=== PATIENT | female | born 1970 | race Native Hawaiian/Other Pacific Islander ===

== ENCOUNTER 2018-01-03 15:25 | Inpatient (IN) | payer MEDICARE, OTHER ==
[2018-01-03 17:00] LABS: BASO # 0.1 10^3/uL (0.0-0.2); BASO % 0.7 % (0.0-1.0); EOS # 0.5 10^3/uL (0.0-0.50); EOS % 6.7 % (0.0-3.0); HEMATOCRIT 33.5 % (36.0-47.0); HEMOGLOBIN 11.1 g/dl (12.0-15.5); IMMATURE GRANULOCYTE % 0.3 % (0-3.0); LYMPH # 1.1 10^3/uL (1.5-4.5); LYMPH % 16.2 % (24.0-44.0); MEAN CORPUSCULAR HEMOGLOBIN 32.8 pg (27.0-33.0); MEAN CORPUSCULAR HGB CONC 33.1 g/dl (32.0-36.5); MEAN CORPUSCULAR VOLUME 99.1 fl (80.0-96.0); MONO # 0.5 10^3/uL (0.0-0.8); MONO % 7.2 % (0.0-5.0); NEUTROPHILS # 4.8 10^3/uL (1.8-7.7); NEUTROPHILS % 68.9 % (36.0-66.0); PLATELET COUNT, AUTOMATED 228 10^3/uL (150-450); RED BLOOD COUNT 3.38 10^6/uL (4.00-5.40); RED CELL DISTRIBUTION WIDTH 13.1 % (11.5-14.5); WHITE BLOOD COUNT 6.9 10^3/uL (4.0-10.0)
[2018-01-03] MEDS: LABETALOL HCL 100 MG/20 ML VIAL IV (17:03)
[2018-01-03 17:14] LABS: INR 0.87; PARTIAL THROMBOPLASTIN TIME 28.1 SECONDS (26.8-37.9); PROTHROMBIN TIME 11.9 SECONDS (12.4-14.5)
[2018-01-03 17:22] LABS: CONTROL LINE HCG INT CTR LINE PRESENT; HCG, SERUM QUALITATIVE NEGATIVE (NEGATIVE)
[2018-01-03 17:37] LABS: ALBUMIN 3.8 GM/DL (3.2-5.2); ALKALINE PHOSPHATASE 89 U/L (45-117); ALT/SGPT 55 U/L (12-78); ANION GAP 7 MEQ/L (8-16); AST/SGOT 47 U/L (7-37); BILIRUBIN,DIRECT 0.2 MG/DL (0.0-0.2); BILIRUBIN,TOTAL 0.5 MG/DL (0.2-1.0); BLOOD UREA NITROGEN 44 MG/DL (7-18); CALCIUM LEVEL 8.9 MG/DL (8.5-10.1); CARBON DIOXIDE LEVEL 34 MEQ/L (21-32); CHLORIDE LEVEL 95 MEQ/L (98-107); CK-MB VALUE MASS 1.2 NG/ML (<3.6); CPK CREATINE PHOSPHOKINASE 78 U/L (26-192); FREE T4 0.92 NG/DL (0.76-1.46); GLOMERULAR FILTRATION RATE 3.3 (>58); GLUCOSE, FASTING 146 MG/DL (70-100); LIPASE 358 U/L (73-393); MB/CK RELATIVE INDEX 1.53 (< OR =4); SODIUM LEVEL 136 MEQ/L (136-145); TOTAL PROTEIN 7.6 GM/DL (6.4-8.2); TROPONIN I 0.22 NG/ML (< 0.10)
[2018-01-03] MEDS: hydrALAZINE INJ 20 MG/ML VIAL IV (18:39)
[2018-01-03] MEDS: ACETAMINOPHEN TAB 650MG DOSE (2X325MG) PO (21:13)
[2018-01-04 00:43] LABS: CK-MB VALUE MASS 1.2 NG/ML (<3.6); CPK CREATINE PHOSPHOKINASE 65 U/L (26-192); MB/CK RELATIVE INDEX 1.84 (< OR =4); TROPONIN I 0.19 NG/ML (< 0.10)
[2018-01-04 08:00] LABS: BASO % 0.6 % (0.0-1.0); EOS # 0.4 10^3/uL (0.0-0.50); EOS % 6.5 % (0.0-3.0); HEMATOCRIT 28.9 % (36.0-47.0); HEMOGLOBIN 9.4 g/dl (12.0-15.5); IMMATURE GRANULOCYTE % 0.3 % (0-3.0); LYMPH % 14.1 % (24.0-44.0); MEAN CORPUSCULAR HEMOGLOBIN 32.2 pg (27.0-33.0); MEAN CORPUSCULAR HGB CONC 32.5 g/dl (32.0-36.5); MONO # 0.5 10^3/uL (0.0-0.8); NEUTROPHILS # 4.9 10^3/uL (1.8-7.7); NEUTROPHILS % 71.5 % (36.0-66.0); PLATELET COUNT, AUTOMATED 185 10^3/uL (150-450); RED BLOOD COUNT 2.92 10^6/uL (4.00-5.40); RED CELL DISTRIBUTION WIDTH 13.2 % (11.5-14.5); WHITE BLOOD COUNT 6.8 10^3/uL (4.0-10.0)
[2018-01-04] MEDS: (RENVELA) SEVELAMER **CARBONate** 800 MG TAB PO ×3 (08:00→18:00)
[2018-01-04 08:24] LABS: ANION GAP 11 MEQ/L (8-16); BLOOD UREA NITROGEN 67 MG/DL (7-18); CALCIUM LEVEL 8.1 MG/DL (8.5-10.1); CARBON DIOXIDE LEVEL 27 MEQ/L (21-32); CHLORIDE LEVEL 98 MEQ/L (98-107); CK-MB VALUE MASS 3.4 NG/ML (<3.6); CPK CREATINE PHOSPHOKINASE 75 U/L (26-192); GLOMERULAR FILTRATION RATE 2.8 (>58); GLUCOSE, FASTING 100 MG/DL (70-100); MAGNESIUM LEVEL 2.9 MG/DL (1.8-2.4); MB/CK RELATIVE INDEX 4.53 (< OR =4); SODIUM LEVEL 136 MEQ/L (136-145); TROPONIN I 1.31 NG/ML (< 0.10)
[2018-01-04 08:31] LABS: POTASSIUM SERUM 5.4 MEQ/L (3.5-5.1)
[2018-01-04] MEDS: HEPARIN 1,000 UNITS/ML 10ML VIAL (FOR RADIOLOGY& DIALYSIS ONLY) IV (10:45)
[2018-01-04] MEDS: HEPARIN 1,000 UNITS/ML 10ML VIAL (FOR RADIOLOGY& DIALYSIS ONLY) XX (10:45)
[2018-01-04 10:59] LABS: HEPATITIS B SURFACE ANTIBODY POSITIVE (POSITIVE)
[2018-01-04 11:10] LABS: HEPATITIS B SURFACE ANTIGEN NEGATIVE (NEGATIVE)
[2018-01-04 11:38] LABS: HEPATITIS B CORE ANTIBODY IGM NEGATIVE (NEGATIVE)
[2018-01-04] MEDS: METOPROLOL SUCC *XL* 25MG TAB (TopROL *XL*) PO ×2 (13:02→21:39)
[2018-01-04] MEDS: HEPARIN SOD (PORCINE) 5000 UNITS/ML VIAL SQ ×2 (14:53→21:39)
[2018-01-04] MEDS: LOSARTAN 50 MG TAB PO (14:53)
[2018-01-04 15:57] LABS: CK-MB VALUE MASS 4.3 NG/ML (<3.6); CPK CREATINE PHOSPHOKINASE 74 U/L (26-192); MB/CK RELATIVE INDEX 5.81 (< OR =4)
[2018-01-04 16:02] LABS: TROPONIN I 2.51 NG/ML (< 0.10)
[2018-01-04] MEDS: MINOXIDIL 10 MG TAB PO (16:24)
[2018-01-04 17:28] LABS: CPK CREATINE PHOSPHOKINASE 80 U/L (26-192)
[2018-01-04 17:29] LABS: CK-MB VALUE MASS 4.1 NG/ML (<3.6); MB/CK RELATIVE INDEX 5.12 (< OR =4)
[2018-01-04 17:36] LABS: TROPONIN I 2.69 NG/ML (< 0.10)
[2018-01-04] MEDS ORDERED: LOSARTAN 25 MG TAB PO (21:00)
[2018-01-04 22:17] LABS: CK-MB VALUE MASS 2.9 NG/ML (<3.6); CPK CREATINE PHOSPHOKINASE 67 U/L (26-192); MB/CK RELATIVE INDEX 4.32 (< OR =4)
[2018-01-04 22:21] LABS: TROPONIN I 2.16 NG/ML (< 0.10)
[2018-01-05] MEDS: HEPARIN SOD (PORCINE) 5000 UNITS/ML VIAL SQ ×3 (05:18→21:19)
[2018-01-05 08:06] LABS: HEPATITIS B CORE ANTIBODY IGG Negative (Negative)
[2018-01-05] MEDS: (RENVELA) SEVELAMER **CARBONate** 800 MG TAB PO ×3 (08:35→17:34)
[2018-01-05] MEDS: MINOXIDIL 10 MG TAB PO (08:35)
[2018-01-05] MEDS: LOSARTAN 50 MG TAB PO (08:38)
[2018-01-05] MEDS: METOPROLOL SUCC *XL* 25MG TAB (TopROL *XL*) PO ×2 (08:38→21:19)
[2018-01-05 09:57] LABS: BASO % 0.5 % (0.0-1.0); EOS # 0.5 10^3/uL (0.0-0.50); EOS % 8.3 % (0.0-3.0); HEMATOCRIT 27.5 % (36.0-47.0); IMMATURE GRANULOCYTE % 0.2 % (0-3.0); LYMPH # 0.9 10^3/uL (1.5-4.5); LYMPH % 16.3 % (24.0-44.0); MEAN CORPUSCULAR HEMOGLOBIN 32.8 pg (27.0-33.0); MEAN CORPUSCULAR HGB CONC 32.7 g/dl (32.0-36.5); MEAN CORPUSCULAR VOLUME 100.4 fl (80.0-96.0); MONO # 0.5 10^3/uL (0.0-0.8); NEUTROPHILS # 3.7 10^3/uL (1.8-7.7); NEUTROPHILS % 65.7 % (36.0-66.0); PLATELET COUNT, AUTOMATED 187 10^3/uL (150-450); RED BLOOD COUNT 2.74 10^6/uL (4.00-5.40); RED CELL DISTRIBUTION WIDTH 13.2 % (11.5-14.5); WHITE BLOOD COUNT 5.6 10^3/uL (4.0-10.0)
[2018-01-05 10:20] LABS: ANION GAP 8 MEQ/L (8-16); BLOOD UREA NITROGEN 33 MG/DL (7-18); CALCIUM LEVEL 8.7 MG/DL (8.5-10.1); CARBON DIOXIDE LEVEL 27 MEQ/L (21-32); CHLORIDE LEVEL 102 MEQ/L (98-107); CPK CREATINE PHOSPHOKINASE 50 U/L (26-192); GLOMERULAR FILTRATION RATE 5.4 (>58); GLUCOSE, FASTING 219 MG/DL (70-100); MAGNESIUM LEVEL 2.4 MG/DL (1.8-2.4); SODIUM LEVEL 137 MEQ/L (136-145)
[2018-01-05 10:21] LABS: CK-MB VALUE MASS 1.7 NG/ML (<3.6)
[2018-01-05 10:25] LABS: TROPONIN I 1.63 NG/ML (< 0.10)
[2018-01-05] MEDS: HEPARIN 1,000 UNITS/ML 10ML VIAL (FOR RADIOLOGY& DIALYSIS ONLY) IV (14:27)
[2018-01-05] MEDS: HEPARIN 1,000 UNITS/ML 10ML VIAL (FOR RADIOLOGY& DIALYSIS ONLY) XX (14:27)
[2018-01-05] MEDS ORDERED: MINOXIDIL 10 MG TAB PO (21:00)
[2018-01-06] MEDS: HEPARIN SOD (PORCINE) 5000 UNITS/ML VIAL SQ ×3 (06:00→21:36)
[2018-01-06] MEDS: (RENVELA) SEVELAMER **CARBONate** 800 MG TAB PO ×3 (08:16→17:59)
[2018-01-06] MEDS: MINOXIDIL 10 MG TAB PO (08:18)
[2018-01-06] MEDS: LOSARTAN 50 MG TAB PO (08:19)
[2018-01-06] MEDS: METOPROLOL SUCC *XL* 25MG TAB (TopROL *XL*) PO ×2 (08:19→20:46)
[2018-01-06] MEDS: diphenhydrAMINE 25 MG CAP PO (11:56)
[2018-01-07 05:40] LABS: BASO # 0.1 10^3/uL (0.0-0.2); BASO % 0.9 % (0.0-1.0); EOS # 0.7 10^3/uL (0.0-0.50); EOS % 12.4 % (0.0-3.0); HEMATOCRIT 28.9 % (36.0-47.0); HEMOGLOBIN 9.4 g/dl (12.0-15.5); IMMATURE GRANULOCYTE % 0.4 % (0-3.0); LYMPH # 1.6 10^3/uL (1.5-4.5); LYMPH % 29.4 % (24.0-44.0); MEAN CORPUSCULAR HEMOGLOBIN 32.4 pg (27.0-33.0); MEAN CORPUSCULAR HGB CONC 32.5 g/dl (32.0-36.5); MEAN CORPUSCULAR VOLUME 99.7 fl (80.0-96.0); MONO # 0.6 10^3/uL (0.0-0.8); MONO % 11.1 % (0.0-5.0); NEUTROPHILS # 2.6 10^3/uL (1.8-7.7); NEUTROPHILS % 45.8 % (36.0-66.0); PLATELET COUNT, AUTOMATED 192 10^3/uL (150-450); RED CELL DISTRIBUTION WIDTH 12.8 % (11.5-14.5); WHITE BLOOD COUNT 5.6 10^3/uL (4.0-10.0)
[2018-01-07 05:54] LABS: ANION GAP 7 MEQ/L (8-16); BLOOD UREA NITROGEN 42 MG/DL (7-18); CALCIUM LEVEL 8.1 MG/DL (8.5-10.1); CARBON DIOXIDE LEVEL 28 MEQ/L (21-32); CHLORIDE LEVEL 102 MEQ/L (98-107); GLOMERULAR FILTRATION RATE 5.3 (>58); GLUCOSE, FASTING 128 MG/DL (70-100); MAGNESIUM LEVEL 2.6 MG/DL (1.8-2.4); POTASSIUM SERUM 4.8 MEQ/L (3.5-5.1); SODIUM LEVEL 137 MEQ/L (136-145)
[2018-01-07 05:55] LABS: CREATININE FOR GFR 8.64 MG/DL (0.55-1.30)
[2018-01-07] MEDS: HEPARIN SOD (PORCINE) 5000 UNITS/ML VIAL SQ ×3 (06:00→21:23)
[2018-01-07] MEDS ORDERED: (RENVELA) SEVELAMER **CARBONate** 800 MG TAB PO (08:45)
[2018-01-07] MEDS: (RENVELA) SEVELAMER **CARBONate** 800 MG TAB PO ×3 (09:28→17:34)
[2018-01-07] MEDS: diphenhydrAMINE 25 MG CAP PO ×2 (09:28→17:36)
[2018-01-07] MEDS: LOSARTAN 50 MG TAB PO (09:29)
[2018-01-07] MEDS: METOPROLOL SUCC *XL* 25MG TAB (TopROL *XL*) PO ×2 (09:29→21:24)
[2018-01-07] MEDS: MINOXIDIL 10 MG TAB PO (10:34)
[2018-01-07 11:11] LABS: FERRITIN 553 NG/ML (8-252); IRON (FE) 107 UG/DL (50-170); PERCENT SATURATION 48.2 % (13.2-45.0); PHOSPHORUS LEVEL 7.6 MG/DL (2.5-4.9); TOTAL IRON BINDING CAPACITY 222 UG/DL (250-450)
[2018-01-07 12:46] LABS: PTH INTACT 1176.9 PG/ML (18.5-88.0)
[2018-01-07] MEDS ORDERED: DARBEPOETIN 100 MCG/0.5 ML *DIALYSIS* SYRINGE (J0882) IV (19:00)
[2018-01-08] MEDS: diphenhydrAMINE 25 MG CAP PO ×2 (05:50→21:22)
[2018-01-08] MEDS: MINOXIDIL 10 MG TAB PO (05:51)
[2018-01-08] MEDS: LOSARTAN 50 MG TAB PO (05:55)
[2018-01-08] MEDS: METOPROLOL SUCC *XL* 25MG TAB (TopROL *XL*) PO ×2 (05:56→21:20)
[2018-01-08] MEDS: HEPARIN SOD (PORCINE) 5000 UNITS/ML VIAL SQ ×3 (05:56→21:20)
[2018-01-08] MEDS: CALCITRIOL 0.25 MCG CAP (S0169) PO (06:26)
[2018-01-08] MEDS: (RENVELA) SEVELAMER **CARBONate** 800 MG TAB PO ×3 (08:00→18:21)
[2018-01-08 13:41] LABS: BASO # 0.1 10^3/uL (0.0-0.2); BASO % 1.1 % (0.0-1.0); EOS # 0.7 10^3/uL (0.0-0.50); EOS % 12.7 % (0.0-3.0); HEMATOCRIT 28.7 % (36.0-47.0); HEMOGLOBIN 9.6 g/dl (12.0-15.5); IMMATURE GRANULOCYTE % 0.2 % (0-3.0); LYMPH # 1.1 10^3/uL (1.5-4.5); LYMPH % 19.7 % (24.0-44.0); MEAN CORPUSCULAR HEMOGLOBIN 32.7 pg (27.0-33.0); MEAN CORPUSCULAR HGB CONC 33.4 g/dl (32.0-36.5); MEAN CORPUSCULAR VOLUME 97.6 fl (80.0-96.0); MONO # 0.5 10^3/uL (0.0-0.8); MONO % 8.8 % (0.0-5.0); NEUTROPHILS # 3.3 10^3/uL (1.8-7.7); NEUTROPHILS % 57.5 % (36.0-66.0); PLATELET COUNT, AUTOMATED 190 10^3/uL (150-450); RED BLOOD COUNT 2.94 10^6/uL (4.00-5.40); RED CELL DISTRIBUTION WIDTH 12.6 % (11.5-14.5); WHITE BLOOD COUNT 5.7 10^3/uL (4.0-10.0)
[2018-01-08 14:16] LABS: QUANTIFERON GOLD TB Positive (Negative); TB Test (QFT) Antigen 0.81 IU/mL (.); TB Test (QFT) Antigen Minus Ni 0.77 IU/mL (.); TB Test (QFT) Mitogen 6.55 IU/mL (.); TB Test (QFT) Nil 0.04 IU/mL (.)
[2018-01-08 14:21] LABS: ANION GAP 12 MEQ/L (8-16); BLOOD UREA NITROGEN 56 MG/DL (7-18); CALCIUM LEVEL 8.7 MG/DL (8.5-10.1); CARBON DIOXIDE LEVEL 23 MEQ/L (21-32); CHLORIDE LEVEL 100 MEQ/L (98-107); GLOMERULAR FILTRATION RATE 3.8 (>58); GLUCOSE, FASTING 141 MG/DL (70-100); SODIUM LEVEL 135 MEQ/L (136-145)
[2018-01-08 14:23] LABS: TOTAL 25(OH) VITAMIN D 10.1 NG/ML (30.0-100.0)
[2018-01-08 14:25] LABS: POTASSIUM SERUM 5.7 MEQ/L (3.5-5.1)
[2018-01-08] MEDS: HEPARIN 1,000 UNITS/ML 10ML VIAL (FOR RADIOLOGY& DIALYSIS ONLY) XX (16:45)
[2018-01-08] MEDS: HEPARIN 1,000 UNITS/ML 10ML VIAL (FOR RADIOLOGY& DIALYSIS ONLY) IV (16:45)
[2018-01-09] MEDS: ACETAMINOPHEN TAB 650MG DOSE (2X325MG) PO (01:12)
[2018-01-09] MEDS: HEPARIN SOD (PORCINE) 5000 UNITS/ML VIAL SQ ×3 (05:26→21:01)
[2018-01-09] MEDS: diphenhydrAMINE 25 MG CAP PO ×2 (05:49→20:07)
[2018-01-09 06:47] LABS: BASO # 0.1 10^3/uL (0.0-0.2); BASO % 0.8 % (0.0-1.0); EOS # 0.6 10^3/uL (0.0-0.50); EOS % 10.3 % (0.0-3.0); HEMATOCRIT 28.1 % (36.0-47.0); HEMOGLOBIN 9.2 g/dl (12.0-15.5); IMMATURE GRANULOCYTE % 0.5 % (0-3.0); LYMPH # 1.3 10^3/uL (1.5-4.5); LYMPH % 20.8 % (24.0-44.0); MEAN CORPUSCULAR HEMOGLOBIN 32.1 pg (27.0-33.0); MEAN CORPUSCULAR HGB CONC 32.7 g/dl (32.0-36.5); MEAN CORPUSCULAR VOLUME 97.9 fl (80.0-96.0); MONO # 0.7 10^3/uL (0.0-0.8); MONO % 10.5 % (0.0-5.0); NEUTROPHILS # 3.5 10^3/uL (1.8-7.7); NEUTROPHILS % 57.1 % (36.0-66.0); PLATELET COUNT, AUTOMATED 184 10^3/uL (150-450); RED BLOOD COUNT 2.87 10^6/uL (4.00-5.40); RED CELL DISTRIBUTION WIDTH 12.6 % (11.5-14.5); WHITE BLOOD COUNT 6.2 10^3/uL (4.0-10.0)
[2018-01-09 07:02] LABS: ESTIMATED AVERAGE GLUCOSE 108 MG/DL (60-110); HEMOGLOBIN A1c 5.4 %
[2018-01-09 07:06] LABS: ANION GAP 9 MEQ/L (8-16); BLOOD UREA NITROGEN 27 MG/DL (7-18); CALCIUM LEVEL 8.6 MG/DL (8.5-10.1); CARBON DIOXIDE LEVEL 26 MEQ/L (21-32); CHLORIDE LEVEL 105 MEQ/L (98-107); CREATININE FOR GFR 7.12 MG/DL (0.55-1.30); GLOMERULAR FILTRATION RATE 6.6 (>58); GLUCOSE, FASTING 99 MG/DL (70-100); MAGNESIUM LEVEL 2.5 MG/DL (1.8-2.4); SODIUM LEVEL 140 MEQ/L (136-145)
[2018-01-09] MEDS: LOSARTAN 50 MG TAB PO (09:09)
[2018-01-09] MEDS: (RENVELA) SEVELAMER **CARBONate** 800 MG TAB PO ×3 (09:09→17:37)
[2018-01-09] MEDS: VITAMIN D 1,000 INTERNATIONAL UNITS TABLET PO (09:09)
[2018-01-09] MEDS: MINOXIDIL 10 MG TAB PO (09:09)
[2018-01-09] MEDS: CALCITRIOL 0.25 MCG CAP (S0169) PO (09:09)
[2018-01-09] MEDS: METOPROLOL SUCC *XL* 25MG TAB (TopROL *XL*) PO ×2 (09:10→20:07)
[2018-01-10] MEDS: HEPARIN SOD (PORCINE) 5000 UNITS/ML VIAL SQ ×3 (05:48→21:07)
[2018-01-10] MEDS: METOPROLOL SUCC *XL* 25MG TAB (TopROL *XL*) PO ×2 (06:43→21:06)
[2018-01-10] MEDS: MINOXIDIL 10 MG TAB PO (06:43)
[2018-01-10] MEDS: CALCITRIOL 0.25 MCG CAP (S0169) PO (06:43)
[2018-01-10] MEDS: LOSARTAN 50 MG TAB PO (06:44)
[2018-01-10] MEDS: VITAMIN D 1,000 INTERNATIONAL UNITS TABLET PO (06:44)
[2018-01-10] MEDS: (RENVELA) SEVELAMER **CARBONate** 800 MG TAB PO ×3 (06:44→17:22)
[2018-01-10 09:05] LABS: BASO % 0.6 % (0.0-1.0); EOS # 0.6 10^3/uL (0.0-0.50); HEMATOCRIT 26.2 % (36.0-47.0); HEMOGLOBIN 8.9 g/dl (12.0-15.5); IMMATURE GRANULOCYTE % 0.5 % (0-3.0); LYMPH % 15.6 % (24.0-44.0); MEAN CORPUSCULAR HEMOGLOBIN 33.5 pg (27.0-33.0); MEAN CORPUSCULAR VOLUME 98.5 fl (80.0-96.0); MONO # 0.6 10^3/uL (0.0-0.8); MONO % 9.6 % (0.0-5.0); NEUTROPHILS # 4.3 10^3/uL (1.8-7.7); NEUTROPHILS % 64.7 % (36.0-66.0); PLATELET COUNT, AUTOMATED 181 10^3/uL (150-450); RED BLOOD COUNT 2.66 10^6/uL (4.00-5.40); RED CELL DISTRIBUTION WIDTH 12.4 % (11.5-14.5); WHITE BLOOD COUNT 6.6 10^3/uL (4.0-10.0)
[2018-01-10 09:36] LABS: ANION GAP 11 MEQ/L (8-16); BLOOD UREA NITROGEN 44 MG/DL (7-18); CALCIUM LEVEL 8.5 MG/DL (8.5-10.1); CARBON DIOXIDE LEVEL 25 MEQ/L (21-32); CHLORIDE LEVEL 102 MEQ/L (98-107); GLOMERULAR FILTRATION RATE 4.5 (>58); GLUCOSE, FASTING 165 MG/DL (70-100); MAGNESIUM LEVEL 2.7 MG/DL (1.8-2.4); SODIUM LEVEL 138 MEQ/L (136-145)
[2018-01-10 09:39] LABS: CREATININE FOR GFR 9.92 MG/DL (0.55-1.30)
[2018-01-10 09:42] LABS: POTASSIUM SERUM 5.5 MEQ/L (3.5-5.1)
[2018-01-10] MEDS: HEPARIN 1,000 UNITS/ML 10ML VIAL (FOR RADIOLOGY& DIALYSIS ONLY) IV (12:25)
[2018-01-10] MEDS: HEPARIN 1,000 UNITS/ML 10ML VIAL (FOR RADIOLOGY& DIALYSIS ONLY) XX (12:25)
[2018-01-10] MEDS: diphenhydrAMINE 25 MG CAP PO (17:22)
[2018-01-10] MEDS: ACETAMINOPHEN TAB 650MG DOSE (2X325MG) PO (21:07)
[2018-01-11] MEDS: HEPARIN SOD (PORCINE) 5000 UNITS/ML VIAL SQ ×3 (05:41→22:00)
[2018-01-11] MEDS ORDERED: DARBEPOETIN 100 MCG/0.5 ML *DIALYSIS* SYRINGE (J0882) IV (08:00)
[2018-01-11] MEDS: (RENVELA) SEVELAMER **CARBONate** 800 MG TAB PO ×3 (09:25→16:39)
[2018-01-11] MEDS: MINOXIDIL 10 MG TAB PO (09:25)
[2018-01-11] MEDS: METOPROLOL SUCC *XL* 25MG TAB (TopROL *XL*) PO ×2 (09:25→22:05)
[2018-01-11] MEDS: CALCITRIOL 0.25 MCG CAP (S0169) PO (09:26)
[2018-01-11] MEDS: VITAMIN D 1,000 INTERNATIONAL UNITS TABLET PO (09:26)
[2018-01-11] MEDS: LOSARTAN 50 MG TAB PO (09:27)
[2018-01-11] MEDS: diphenhydrAMINE 25 MG CAP PO (22:06)
[2018-01-11] MEDS: ACETAMINOPHEN TAB 650MG DOSE (2X325MG) PO (22:06)
[2018-01-12] MEDS: HEPARIN SOD (PORCINE) 5000 UNITS/ML VIAL SQ ×3 (05:21→20:30)
[2018-01-12] MEDS: MINOXIDIL 10 MG TAB PO (05:47)
[2018-01-12] MEDS: CALCITRIOL 0.25 MCG CAP (S0169) PO (05:47)
[2018-01-12] MEDS: METOPROLOL SUCC *XL* 25MG TAB (TopROL *XL*) PO ×2 (05:48→20:31)
[2018-01-12] MEDS: LOSARTAN 50 MG TAB PO (05:48)
[2018-01-12] MEDS: (RENVELA) SEVELAMER **CARBONate** 800 MG TAB PO ×3 (05:48→17:52)
[2018-01-12] MEDS: VITAMIN D 1,000 INTERNATIONAL UNITS TABLET PO (05:49)
[2018-01-12] MEDS: HEPARIN 1,000 UNITS/ML 10ML VIAL (FOR RADIOLOGY& DIALYSIS ONLY) IV (09:45)
[2018-01-12] MEDS: diphenhydrAMINE 25 MG CAP PO (13:59)
[2018-01-12] MEDS: ACETAMINOPHEN TAB 650MG DOSE (2X325MG) PO (20:32)
[2018-01-13] MEDS: HEPARIN SOD (PORCINE) 5000 UNITS/ML VIAL SQ (05:32)
[2018-01-13] MEDS: MINOXIDIL 10 MG TAB PO (09:27)
[2018-01-13] MEDS: METOPROLOL SUCC *XL* 25MG TAB (TopROL *XL*) PO (09:27)
[2018-01-13] MEDS: VITAMIN D 1,000 INTERNATIONAL UNITS TABLET PO (09:27)
[2018-01-13] MEDS: LOSARTAN 50 MG TAB PO (09:27)
[2018-01-13] MEDS: (RENVELA) SEVELAMER **CARBONate** 800 MG TAB PO (09:27)
[2018-01-13] MEDS: CALCITRIOL 0.25 MCG CAP (S0169) PO (09:28)
== END 2018-01-13 11:30 | disposition home or self-care (01) | DRG 640 ==
LOC: M MSPAV 01-07 14:52 → M PCU 01-04 17:36 → M MS4PR 01-08 16:20 → M MSPAV 01-07 15:09 → M ED 15:25 → M MSPAV 01-07 15:14 → M ED INP 18:20
PROC: 5A1D70Z Performance of Urinary Filtration, Intermittent, Less than 6 Hours Per Day (ICD-10-PCS; principal; 2018-01-04)
DX: E87.70 Fluid overload, unspecified (principal); N18.6 End stage renal disease; N25.81 Secondary hyperparathyroidism of renal origin; I15.0 Renovascular hypertension; D63.1 Anemia in chronic kidney disease; M72.2 Plantar fascial fibromatosis; Z79.899 Other long term (current) drug therapy; Z88.5 Allergy status to narcotic agent; E11.29 Type 2 diabetes mellitus with other diabetic kidney complication

== ENCOUNTER → 2018-03-20 | Outpatient (CLI) | payer SELFPAY, MEDICARE ==
[~2018-03-20] MED LIST: ISOVUE-300 61% 50ML VIAL (Q9967) As Ordered; LIDOCAINE 2% MDV 20 ML VIAL As Ordered; MIDAZOLAM INJ 2 MG/2 ML VIAL (J2250) As Ordered; fentaNYL 100 MCG/2 ML INJECTION (J3010) As Ordered
== END | disposition home or self-care (01) ==
LOC: M IRPRO 09:33
DX: T82.858A Stenosis of other vascular prosthetic devices, implants and grafts, initial encounter (principal); E11.22 Type 2 diabetes mellitus with diabetic chronic kidney disease; I12.0 Hypertensive chronic kidney disease with stage 5 chronic kidney disease or end stage renal disease; N18.6 End stage renal disease; Z99.2 Dependence on renal dialysis
CPT/HCPCS: 36902

== ENCOUNTER 2018-08-12 12:16 | Emergency (ER) | payer OTHER, SELFPAY ==
[~2018-08-12] VITALS: Ht 149.9 cm; Wt 27.1 kg
[~2018-08-12 12:16] MED LIST changes: +CALC1CAP31 PO; +COZA1TAB PO; +COZA50TA PO; -ISOVUE-300 61% 50ML VIAL (Q9967) As Ordered; -LIDOCAINE 2% MDV 20 ML VIAL As Ordered; +METO1TAB32 PO; -MIDAZOLAM INJ 2 MG/2 ML VIAL (J2250) As Ordered; +MINO10TA PO; +RENV2TAB PO; +VITAD1000T PO; -fentaNYL 100 MCG/2 ML INJECTION (J3010) As Ordered
[2018-08-12] MEDS ORDERED: AMLO5TAB6 PO (12:42)
[2018-08-12] MEDS ORDERED: FOSR1000 PO (12:42)
[2018-08-12] MEDS ORDERED: SENS60TA PO (12:42)
[2018-08-12] MEDS ORDERED: LEVO25TA5 PO (12:42)
[2018-08-12] MEDS ORDERED: AURY1TAB PO (12:42)
[2018-08-12] MEDS ORDERED: PERCOCET 5MG/325MG TAB PO ONE (15:30)
[2018-08-12 16:30] VITALS: BP 197/91
[2018-08-12] MEDS ORDERED: OXYC1TAB23 PO (16:40)
--- NOTE | 2018-08-12 17:02 | REP ---
CT chest without contrast: History: Rule out fracture of the lower ribs. Comparison is made with a portable chest x-ray from January 03, 2018. CT findings: Preliminary digital pulmonary fellow radiograph demonstrates a right-sided central venous tunnel catheter. Axial CT images demonstrate that this terminates in the region of the right atrium. Vascular calcifications noted including coronary artery calcification. There is mild linear fibrosis in the lingula. There is a fracture of the right posterior 8th rib. There is some adjacent pleural thickening. No other rib fracture is appreciated. There is no evidence of hilar or mediastinal mass or adenopathy. No adrenal lesion is seen. Impression: There is a mildly displaced posterolateral rib fracture involving the right 8th rib with associated pleural thickening. Central tunnel catheter is seen in place with its tip in the region of the right atrium. Vascular calcification. Otherwise no acute disease. Electronically Signed by iDck Todd MD 08/12/2018 08:24 P
== END 2018-08-12 16:45 | disposition home or self-care (01) ==
LOC: M ED 12:16
DX: S22.31XA Fracture of one rib, right side, initial encounter for closed fracture (principal); X50.0XXA Overexertion from strenuous movement or load, initial encounter; Y92.009 Unspecified place in unspecified non-institutional (private) residence as the place of occurrence of the external cause; E11.22 Type 2 diabetes mellitus with diabetic chronic kidney disease; I12.0 Hypertensive chronic kidney disease with stage 5 chronic kidney disease or end stage renal disease; N18.6 End stage renal disease; Z99.2 Dependence on renal dialysis